=== PATIENT | male | born 1950 | race Caucasian/White ===

== ENCOUNTER 2017-03-20 11:26 | Emergency (ER) | payer MEDICARE ==
[~2017-03-20] VITALS: Ht 175.3 cm; Wt 84.1 kg
[2017-03-20 11:27] VITALS: TEMP 98.9
[2017-03-20] MEDS ORDERED: ZOCOR 40MG40 MG PO (12:22)
[2017-03-20] MEDS ORDERED: GLUCOPHAGE500 MG/TAB PO (12:23)
[2017-03-20] MEDS ORDERED: SYNTHROID0.075 MG/T PO (12:23)
[2017-03-20] MEDS ORDERED: LOPID 600M600 MG/TAB PO (12:23)
[2017-03-20] MEDS ORDERED: ASPIRIN 81M81 MG/TA2 PO (12:25)
[2017-03-20] MEDS ORDERED: CALCIUM CARBON650 M2 PO (12:25)
[2017-03-20] MEDS ORDERED: COZAAR100 MG PO (12:25)
[2017-03-20] MEDS ORDERED: NIACIN 100100 MG/TAB PO (12:26)
[2017-03-20] MEDS ORDERED: NORCO 325 MG-51 TAB PO (12:49)
[2017-03-20 13:23] VITALS: BP 130/73; PULSE 62
== END 2017-03-20 13:24 | disposition home or self-care (01) ==
LOC: COL.ER 11:26
DX: S89.92XA Unspecified injury of left lower leg, initial encounter (principal); S82.402A Unspecified fracture of shaft of left fibula, initial encounter for closed fracture; S82.302A Unspecified fracture of lower end of left tibia, initial encounter for closed fracture; I10 Essential (primary) hypertension; E78.5 Hyperlipidemia, unspecified; E03.9 Hypothyroidism, unspecified; Z79.4 Long term (current) use of insulin; Z79.82 Long term (current) use of aspirin; W10.9XXA Fall (on) (from) unspecified stairs and steps, initial encounter; Y92.009 Unspecified place in unspecified non-institutional (private) residence as the place of occurrence of the external cause